=== PATIENT | female | born 1980 | race Two or more races ===

== ENCOUNTER 2018-06-20 12:25 | Inpatient (IN) | payer OTHER ==
[~2018-06-20] VITALS: Ht 157.5 cm; Wt 77.1 kg
[~2018-06-20 12:25] MED LIST: DOXYCYCLINE HY100 MG PO; PERCOCET 5-3251 EACH PO; ULTRACET PO; ULTRAM50 MG PO
[2018-06-30] MEDS ORDERED: PRENATAL FORMU1 EAC1 PO (13:34)
[2018-06-30] MEDS ORDERED: ZANTAC 7575 MG PO (13:35)
[2018-07-02] MEDS ORDERED: CODE1TAB37 PO (09:22)
== END 2018-07-02 12:02 | disposition home or self-care (01) | DRG 775 ==
LOC: LDR 06-30 07:27 → OB/GYN 06-30 22:00
PROC: 10E0XZZ Delivery of Products of Conception, External Approach (ICD-10-PCS; principal; 2018-06-30)
PROC: 10907ZC Drainage of Amniotic Fluid, Therapeutic from Products of Conception, Via Natural or Artificial Opening (ICD-10-PCS; 2018-06-30)
PROC: 4A1HXCZ Monitoring of Products of Conception, Cardiac Rate, External Approach (ICD-10-PCS; 2018-06-30)
DX: O99.824 Streptococcus B carrier state complicating childbirth (principal); Z3A.38 38 weeks gestation of pregnancy; Z37.0 Single live birth

== ENCOUNTER 2018-10-20 06:49 | Day surgery (SDC) | payer OTHER ==
[~2018-10-20 06:49] MED LIST changes: +CLARITIN10 M1; +CODE1TAB37 PO; +FLONASE16 GM; +MUCINEX DM ER1 EAC1; +PRENATAL FORMU1 EAC1 PO; +SINGULAIR10 MG; +SYMBICORT 80/10.2 GM; +ZANTAC 7575 MG PO
[2018-10-20] MEDS ORDERED: CODE1TAB37 PO (08:49)
== END 2018-10-20 10:45 | disposition home or self-care (01) ==
LOC: CIR.AMB 06:49
DX: D27.1 Benign neoplasm of left ovary (principal)

== ENCOUNTER → 2020-01-04 | Outpatient (CLI) | payer OTHER | END | disposition home or self-care (01) | LOC: PRENATAL 15:30 | DX: O35.0XX0 Maternal care for (suspected) central nervous system malformation in fetus, not applicable or unspecified (principal); O36.8330 Maternal care for abnormalities of the fetal heart rate or rhythm, third trimester, not applicable or unspecified; O09.523 Supervision of elderly multigravida, third trimester ==

== ENCOUNTER 2020-01-25 07:12 | Inpatient (IN) | payer OTHER ==
[~2020-01-25] VITALS: Ht 154.9 cm; Wt 78.9 kg
[2020-01-25] MEDS ORDERED: PRENATAL CAPLE1 EAC1 PO (08:08)
== END 2020-01-27 11:34 | disposition home or self-care (01) | DRG 807 ==
LOC: LDR 07:12 → SURG-SUITE 07:12
PROVIDERS: ADMIT Obstetrics & Gynecology
PROC: 10E0XZZ Delivery of Products of Conception, External Approach (ICD-10-PCS; principal; 2020-01-25)
PROC: 10907ZC Drainage of Amniotic Fluid, Therapeutic from Products of Conception, Via Natural or Artificial Opening (ICD-10-PCS; 2020-01-25)
PROC: 3E033VJ Introduction of Other Hormone into Peripheral Vein, Percutaneous Approach (ICD-10-PCS; 2020-01-25)
PROC: 4A1HXCZ Monitoring of Products of Conception, Cardiac Rate, External Approach (ICD-10-PCS; 2020-01-25)
DX: O80 Encounter for full-term uncomplicated delivery (principal); Z37.0 Single live birth; Z3A.38 38 weeks gestation of pregnancy

== ENCOUNTER 2025-02-26 10:22 | Outpatient (CLI) | payer OTHER ==
[~2025-02-26 10:22] MED LIST changes: +PRENATAL CAPLE1 EAC1 PO
== END 2025-02-26 10:26 | disposition home or self-care (01) ==
LOC: SONOGRAMA 10:22
PROVIDERS: ATTEND Pathology Anatomic Pathology & Clinical Pathology
DX: D34 Benign neoplasm of thyroid gland (principal); E07.89 Other specified disorders of thyroid; E04.2 Nontoxic multinodular goiter